=== PATIENT | male | born 1990 | race American Indian/Alaskan Native ===

== ENCOUNTER 2018-07-09 19:10 | Emergency (ER) | payer OTHER ==
[2018-07-09 19:35] VITALS: BP 138/92
[2018-07-09] MEDS ORDERED: TYLENOL PO ONE (19:41)
[2018-07-09] MEDS ORDERED: TYLENOL ONE (19:44)
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
[2018-07-09] MEDS ORDERED: IBUPROFEN PO ONE (23:58)
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
== END 2018-07-10 01:33 | disposition home or self-care (01) ==
LOC: ED 19:10
DX: M54.6 Pain in thoracic spine (principal); J45.909 Unspecified asthma, uncomplicated; F17.200 Nicotine dependence, unspecified, uncomplicated; V49.49XA Driver injured in collision with other motor vehicles in traffic accident, initial encounter; Y93.89 Activity, other specified; Y92.89 Other specified places as the place of occurrence of the external cause; Y99.8 Other external cause status
CPT/HCPCS: 72100